=== PATIENT | female | born 1970 | race Caucasian/White ===

== ENCOUNTER 2016-07-08 10:16 | Emergency (ER) | payer BC ==
[2016-07-08 10:31] VITALS: BP 131/84
--- NOTE | 2016-07-08 10:56 | ED ---
Lower Extremity - History of Current Complaint Chief Complaint: UC Stated Complaint: KNEE PAIN Hx Obtained From: Patient Hx Last Menstrual Period: 4 WEEKS AGO Mechanism Of Injury: Unknown - pt awoke 4 days ago with sore R knee, no known injury or overuse Onset of Pain: Immediate Severity Initially: Mild Severity Currently: Moderate - stiffness, swelling Character Of Pain: Aching, Stiffness Associated Signs And Symptoms: Positive: Swelling, Other - no calf pain or redness. Negative: Redness, Bruising, Weakness, Dizziness Aggravating Factor(s): Other - bending knee (flexing) Alleviating Factor(s): Rest, Other - leg extension Able to Bear Weight: Yes - without pain - Risk Factors DVT Risk Factors: Negative - Allergies/Home Medications Allergies/Adverse Reactions: Allergies Allergy/AdvReac Type Severity Reaction Status Date / Time No Known Allergies Allergy Verified 07/08/16 10:24 PMH/Surg Hx/FS Hx/Imm Hx Previously Healthy: Yes Endocrine/Hematology History: Denies: Hx Diabetes, Hx Thyroid Disease Cardiovascular History: Denies: Hx Hypertension, Hx Peripheral Vascular Disease Respiratory History: Denies: Hx Asthma, Hx Chronic Obstructive Pulmonary Disease (COPD) GI History: Denies: Hx Ulcer Musculoskeletal History: Denies: Other Musculoskeletal History Neurological History: Denies: Other Neuro Impairments/Disorders Psychiatric History: Denies: Hx Depression - Surgical History Surgery Procedure, Year, and Place: 2 C-sections ( ). D&C 2002. Stent Kidney stones 2000. Appendectomy and laporotomy due to infection 1989 Hx Anesthesia Reactions: No Infectious Disease History: No Infectious Disease History: Denies: Hx Clostridium Difficile, Hx Hepatitis, Hx Human Immunodeficiency Virus (HIV), Hx of Known/Suspected MRSA, Hx Shingles, Hx Tuberculosis, Hx Known/ Suspected VRE, Hx Known/Suspected VRSA, History Other Infectious Disease, Traveled Outside the [place] in Last 30 Days - Family History Known Family History: Positive: None - Social History Occupation: Employed Full-time - [employer] Lives: With Family Alcohol Use: Rare Substance Use Type: Reports: None Smoking Status (MU): Never Smoked Tobacco Review of Systems Constitutional: Negative Negative: Fever, Chills Cardiovascular: Negative Negative: Chest Pain Respiratory: Negative Negative: Shortness Of Breath Musculoskeletal: Other - only symps rel;ated to R knee Skin: Negative Negative: Rash, Bruising Neurological: Negative Psychological: Normal All Other Systems Reviewed And Are Negative: Yes Physical Exam Triage Information Reviewed: Yes Vital Signs On Initial Exam: Initial Vitals Temp Pulse Resp BP Pulse Ox 99.1 F 69 16 131/84 100 07/08/16 10:25 07/08/16 10:25 07/08/16 10:25 07/08/16 10:25 07/08/16 10:25 Vital Signs Reviewed: Yes Appearance: Positive: Well-Appearing, No Pain Distress, Well-Nourished Skin: Positive: Warm, Skin Color Reflects Adequate Perfusion, Dry Respiratory/Lung Sounds: Positive: Clear to Auscultation Cardiovascular: Positive: Normal, RRR, Pulses are Symmetrical in both Upper and Lower Extremities Musculoskeletal: Positive: Abnormal @ - decreased flexion at 40 degrees d/t pain R knee. swelling and pos bulge test R knee, no redness or warmth. palp pain popliteal area w/o sig bulge or mass. NO calf pain, redness, swelling or warmth. Negative: Valerie Sign Right Neurological: Positive: Normal, Sensory/Motor Intact, Alert, Oriented to Person Place, Time Psychiatric: Positive: Normal Diagnostics - Vital Signs Vital Signs Temp Pulse Resp BP Pulse Ox 07/08/16 10:25 99.1 F 69 16 131/84 100 - Laboratory Lab Statement: Any lab studies that have been ordered have been reviewed, and results considered in the medical decision making process. Lower Extremity Course/Dx - Diagnoses Differential Diagnosis/HQI/PQRI: Positive: Bursitis, Cellulitis, DVT, Septic Arthritis - recently moved from [place]-consider [place], Sprain, Tendonitis Provider Diagnoses: Knee swelling Discharge - Discharge Plan Condition: Stable Disposition: HOME Prescriptions: DOXYcycline CAP(*) [DOXYcycline 100MG CAP(*)] 100 mg PO BID #20 cap Patient Education Materials: Swollen Knee Joint (ED) Referrals: Kenn Odom MD [Primary Care Provider] - Tejas Barros MD [Medical Doctor] - (call on Sunday to knee re-evaluated) Additional Instructions: elevate Right [place] [id number] minutes every 2 hours use ibuprofen 600mg every 6 hours with food Take antibiotic as prescribed If pain or swelling worsening or calf swelling, redness occurs please go directly to ER
--- NOTE | 2016-07-08 11:27 | RAD ---
INDICATION: Atraumatic pain and swelling of the right knee COMPARISON: None TECHNIQUE: 4 view radiograph of the right knee. FINDINGS: The visualized bones are well-corticated and properly aligned. The joint spaces are properly maintained. There is no radiographic evidence of joint effusion. There is no acute fracture, dislocation or other focal bony abnormality. IMPRESSION: Normal knee radiograph as described above. If the patient's symptoms persist, follow-up imaging is recommended.
== END 2016-07-08 12:06 | disposition home or self-care (01) ==
LOC: UCEAST 10:16
DX: M25.461 Effusion, right knee (principal); M25.561 Pain in right knee
CPT/HCPCS: 36415; 86140; 86618; 99202; G0463

== ENCOUNTER → 2016-08-30 09:09 | Day surgery (SDC) | payer BC ==
--- NOTE | 2016-08-22 14:42 | HP ---
PREOPERATIVE HISTORY AND PHYSICAL: DATE OF ADMISSION: 08/30/16 DATE OF SURGERY: 08/30/16 - [facility] DATE OF OFFICE VISIT: 08/22/16 ATTENDING SURGEON: Emy Mcgill MD. PROCEDURE: Right knee arthroscopic possible meniscal repair, possible root repair. CHIEF COMPLAINT: Right knee pain. HISTORY OF PRESENT ILLNESS: Kylah is a 46-year-old female who presents to the clinic for ongoing right knee pain and catching due to a meniscal tear. She has failed conservative measures and has therefore agreed to undergo a right knee arthroscopic possible meniscus repair, possible root repair with Dr. Mcgill on 08/30/16. PAST MEDICAL HISTORY: None. PAST SURGICAL HISTORY: Cholecystectomy, appendectomy, x2, laparotomy. She denies complications with anesthesia. MEDICATIONS: [id number] naproxen as needed. ALLERGIES: DEMEROL. FAMILY HISTORY: Positive for diabetes and hypertension on the paternal side. SOCIAL HISTORY: She lives with her and 2 teenagers. She denies tobacco use. She reports occasional alcohol use. REVIEW OF SYSTEMS: A 14-point review of systems was reviewed with the patient and found to be negative. She denies chest pain, shortness of breath, DVT, PE, history of bleeding disorder or prior complications with anesthesia. PHYSICAL EXAMINATION GENERAL: Well-developed, well-nourished 46-year-old female in no acute distress. Alert and oriented x3. Appropriate mood and affect. VITALS: Height 66, weight 165, pulse 79, blood pressure 120/82, respiratory rate 16, temperature 98.6, BMI 26.6. HEENT: Normocephalic, atraumatic. PERRLA. Throat clear. NECK: Supple. PULMONARY: Lungs clear to auscultation bilaterally. No wheezing, rhonchi, or rales. CARDIO: Regular rate and rhythm. S1, S2. No murmurs, gallops, or rubs. No edema. ABDOMEN: Positive bowel sounds. Soft, nontender. MUSCULOSKELETAL: Right lower extremity, well-healed surgical incision. No erythema or warmth. Mild effusion. Tenderness over the posteromedial joint line and lateral joint line. Range of motion from 0 to 110 degrees. Positive Martha. Stable 1A Stephanie. Negative posterior drawer. +2 dorsalis pedis pulse. Sensation intact to light touch distally. NEURO: Alert and oriented x3. Cranial nerves grossly intact. Sensation intact to light touch distally. DIAGNOSTIC STUDIES/LAB DATA: X-rays were normal. MRI revealed a medial root of the meniscus tear of the right knee. IMPRESSION: Right knee meniscus tear. PLAN: The patient is scheduled to undergo a right knee arthroscopic possible meniscus repair, possible root repair with Dr. Mcgill on 08/30/16. She will return to the office 10 to 14 days postop for followup and suture removal. Percocet will be used postoperatively for pain management. [employer] [id number]/[facility] #: [id number] [facility]ALTH SYSTEMRoel
[~2016-08-30 09:09] MED LIST: Buffered Lidocaine 1% SYRIN* 3 ML/SYR SYRINGE INTRADERM ONE; Bupivacaine 0.25% EPI 200,000* 30 ML SDV ONE; Dexamethasone IV* 4 MG/ML 1 ML (4 MG) ONE; Famotidine IV* 10 MG/ML 2 ML (20 mg) IV ONE; Famotidine IV* 10 MG/ML 2 ML (20 mg) ONE; HYDROmorphone* 1 MG/ML 1 ML SYR IV PRN; KETAMINE HCL* 50 MG/ML 10 ML VIAL ONE; Ketorolac INJ* 30 MG/ML 1 ML VIAL ONE; Lidocaine 2% PF* 5 ML VIAL ONE; Metoclopramide TAB* 10 MG ONE; Metoclopramide TAB* 10 MG PO ONE; Midazolam* 1 MG/ML 5 ML VIAL (5 MG) ONE; Ondansetron INJ* 2 MG/ML VIAL IV PRN; Ondansetron INJ* 2 MG/ML VIAL ONE; Propofol* 10 MG/ML 20 ML BTL IV PUSH ONE; Succinylcholine* 20 MG/ML 10 ML VIAL ONE; ceFAZolin 2 GM PREMIX(*) 2 GM/50 ML BAG IVPB ONE; fentaNYL* 50 MCG/ML 2 ML VIAL (100 MCG VIAL) IV PRN; fentaNYL* 50 MCG/ML 2 ML VIAL (100 MCG VIAL) ONE; oxyCODONE/Acetamin 5/325 MG* TAB ONE; oxyCODONE/Acetamin 5/325 MG* TAB PO PRN
[2016-08-30 09:15] LABS: Manual Entry Verification HAN0055; UR Preg Internal Control QC Line Present
[2016-08-30 14:02] VITALS: BP 130/75
--- NOTE | 2016-08-31 13:51 | OP ---
DATE OF OPERATION: 08/30/16 [facility] DATE OF : 72 SURGEON: Emy Mcgill MD MANAGER EMPLOYEE BENEFITS: Ann Brody PA-C. An assistant auto center manager was needed for the entirety of the case and was utilized throughout all portions of the case. ANESTHESIOLOGIST: Dr. Valdes. ANESTHESIA: General. PRE-OP DIAGNOSIS: Right knee anterior cruciate ligament sprain with tearing of the root of the medial meniscus. POST-OP DIAGNOSES: 1. Anterior cruciate ligament sprain, lateral meniscal fraying. 2. Partial tearing of the root of the medial meniscus, medial plica. 3. Patellar chondrosis. OPERATIVE PROCEDURE: Right knee arthroscopy with: 1. Partial lateral meniscectomy. 2. Partial medial meniscectomy with intact root of the meniscus. 3. Patellar chondroplasty. 4. Plica excision. COMPLICATIONS: None. ESTIMATED BLOOD LOSS: Minimal. INDICATIONS: Kylah Conway is a 46-year-old female who injured her knee several months ago. She was diagnosed with partial ACL tear. She was having feelings of pain and instability of the knee. Her instability did resolve but she was noticing some catching. There was concern based on the MRI findings that she might have eroded the meniscus tear. She failed conservative management and would like to proceed with operative treatment. DESCRIPTION OF PROCEDURE: The patient was greeted in the preoperative area by the attending surgeon. Correct extremity was marked and and consent was confirmed. The patient was brought back to the operating suite. She was placed on supine position on the operating table. She then underwent general anesthesia, LMA intubation after she tolerated that. A tourniquet was placed high on the proximal right leg. The lateral post was positioned. After miniature surgical pause, the knee was intra-articularly injected with 0.25% Marcaine with epi. The leg was then prepped and draped in the usual sterile fashion beginning with chlorhexidine soap, scrub, alcohol wipe and a final prep with a ChloraPrep. After appropriate surgical pause indicating side, site, and procedure, administration of antibiotics, the standard anterolateral portal was made sharply with a 11 blade. The scope was introduced to the joint. The joint was examined. In the suprapatellar pouch, there were grade 2 changes with unstable flaps to the patella particularly laterally. The trochlea was intact with grade 0 changes. The medial and lateral gutters were intact. However, medially , there was indication of inflammation and irritation about the medial femoral condyle particularly in the gutter with small loose tissue that was attached. The scope was then brought to the notch, the ACL was intact but had evidence of partial tearing and it was somewhat diminutive. There was abundant ligamentum and fat pad that was present anteriorly. The medial portal was made in an outside-in fashion. Shaver was used to remove the fat pad. The shaver was then used to do a chondroplasty of the patella as well as try to remove some of the unstable flap tissue medially. This resulted in identifying a plica which was then removed using a shaver device. At this point, the knee was placed in a [id number] position to examine the lateral compartment. There was mild unstable fraying of the lateral meniscus but the majority of the meniscus was intact. The root was intact. A shaver was used to debride the unstable fraying. The lateral femoral condyle and lateral tibial plateau had grade 0 to 1 changes. The knee was then placed in slight valgus with slight extension and then medial compartment was identified. The medial meniscus of the body was intact. The root was examined and there was partial thickness tearing. The scope was then placed in a [place] portal and the meniscus was examined. We had evidence of previous partial tearing but it appeared to have healed back. There were small areas of unstable flap but 75% or more was still attached. Decision was made at this point to not do anything to the root of the meniscus. The remainder of the meniscus was probed and found to be intact. The small unstable fraying was then debrided back using the biter and shaver. The electrocautery device was used to maintain hemostasis. Once debridement and meniscectomies were complete, the offload and debris were removed from the joint. The portals were closed with 3-0 nylon. The knee was intra-articularly injected with 0.25% Marcaine plain. Sterile dressings were applied as well as the Cryo/Cuff. She was awoken from anesthesia and transferred to PACU in stable condition. POSTOPERATIVE PLAN: She will be weightbearing as tolerated. She will be allowed to work on range of motion as tolerated. I will see the patient back in 10 to 14 days. She will be discharged with pain medication. DVT prophylaxis is considered but deferred due to no previous personal or family history. I will see the patient back in 10 to 14 days. [id number]/[facility] #: [id number] [place]
== END | disposition home or self-care (01) ==
LOC: OR 09:09
PROVIDERS: ATTEND Orthopaedic Surgery
DX: M23.200 Derangement of unspecified lateral meniscus due to old tear or injury, right knee (principal); M23.203 Derangement of unspecified medial meniscus due to old tear or injury, right knee; M23.8X1 Other internal derangements of right knee; M22.41 Chondromalacia patellae, right knee
CPT/HCPCS: 81025; A9270-GY; J0330; J0690; J1100; J1885; J2250; J2405; J2704; J3010